=== PATIENT | male | born 1940 | race Caucasian/White ===

== ENCOUNTER 2018-08-06 07:55 | Day surgery (SDC) | payer MEDICARE ==
[~2018-08-06 07:55] MED LIST: PROPOFOL INJ 200 MG/20 ML VIAL IV ONE
[2018-08-06 09:48] VITALS: BP 140/72
--- NOTE | 2018-08-06 12:08 | Operative Report ---
Operative Report DATE OF SURGERY: 08/06/18 Operative Report: The risks, benefits and alternatives of the procedure including the risks of bleeding, perforation requiring surgery are explained to the patient in detail and informed consent is obtained. The patient is brought back to the endoscopy suite and placed in a left, lateral decubital position. Timeout was called. Propofol medication is administered. A rectal examination is done which did not reveal any masses, tears or fissures. An Olympus videoscope was inserted into the patient's rectum. The scope was then carefully advanced all the way to the cecum. The cecum was identified by the usual anatomical landmarks including the ileocecal valve as well as the appendiceal office. Photodocumentation is obtained. The scope was then sequentially pulled back via the rest segments of the colon including the ascending colon, hepatic flexure, transverse colon, splenic flexure, descending colon and finally into the rectosigmoid portions of the colon. Retroflexion maneuver is performed. PREOPERATIVE DIAGNOSIS: Personal history of polyp POSTOPERATIVE DIAGNOSIS: Descending colon polyp status post biopsy. Diverticulosis. Internal hemorrhoids OPERATION: Colonoscopy with biopsy SURGEON: SLIME EARLY ANESTHESIA: LMAC TISSUE REMOVED OR ALTERED: As noted above. COMPLICATIONS: None. ESTIMATED BLOOD LOSS: None. INTRAOPERATIVE FINDINGS: As noted above. PROCEDURE: Patient tolerated the procedure well. No immediate postprocedure complications are noted. Patient discharged in good condition. Discharge date 08/06/2018. Discharge diet: Regular. Discharge activity: Regular. 2-3-week follow-up to discuss findings. Patient is instructed call the office or proceed to the emergency room should there be any further problems or questions. We will wait on the pathology. 3-5-year surveillance colonoscopy.
== END 2018-08-06 09:30 | disposition home or self-care (01) ==
LOC: END 07:55
PROVIDERS: ATTEND Internal Medicine Gastroenterology
DX: D12.4 Benign neoplasm of descending colon (principal); K57.30 Diverticulosis of large intestine without perforation or abscess without bleeding; K64.8 Other hemorrhoids; Z85.038 Personal history of other malignant neoplasm of large intestine; Z90.49 Acquired absence of other specified parts of digestive tract; E78.00 Pure hypercholesterolemia, unspecified; I11.0 Hypertensive heart disease with heart failure; I50.9 Heart failure, unspecified; N40.1 Benign prostatic hyperplasia with lower urinary tract symptoms; C61 Malignant neoplasm of prostate; R39.12 Poor urinary stream; M02.30 Reiter's disease, unspecified site; Z87.891 Personal history of nicotine dependence; Z79.899 Other long term (current) drug therapy
CPT/HCPCS: 45380; 88305 ×2; J2704; 811

== ENCOUNTER 2019-08-19 15:30 | Inpatient (IN) | payer MEDICARE ==
[2019-08-19] MEDS ORDERED: LABETALOL HCL INJ 20 MG/4 ML DISP.SYRIN IV ONE (15:39)
--- NOTE | 2019-08-19 15:49 | ER Document Report ---
ED Blood Pressure Problem - General Chief Complaint: High Blood Pressure Stated Complaint: DIZZINESS Time Seen by Provider: 08/19/19 15:35 Primary Care Provider: BRANDI RIZVI MD [Primary Care Provider] - Follow up as needed Mode of Arrival: Medic Information source: Patient TRAVEL OUTSIDE OF THE [place] IN LAST 30 DAYS: No - HPI Patient complains to provider of: High blood pressure - pt with onset of dizziness earlier today -- EMS called an BP was found to be 236/109 -- pt. without h/o HTN. Clonidine given by EMS. Pt. without CP, N,V, SOB - Related Data Allergies/Adverse Reactions: No Known Allergies Allergy (Verified 08/06/18 08:11) Past Medical History - General Information source: Patient - Social History Smoking Status: Never Smoker Family History: None Patient has suicidal ideation: No Patient has homicidal ideation: No - Past Medical History Cardiac Medical History: Denies: Hx Coronary Artery Disease, Hx Heart Attack, Hx Hypertension Pulmonary Medical History: Denies: Hx Asthma, Hx Bronchitis, Hx COPD, Hx Pneumonia Neurological Medical History: Denies: Hx Cerebrovascular Accident, Hx Seizures Musculoskeletal Medical History: Reports Hx Arthritis - Hx of in the '70s, none since then - Immunizations Hx Diphtheria, Pertussis, Tetanus Vaccination: No Review of Systems - Review of Systems Constitutional: No symptoms reported EENT: No symptoms reported Cardiovascular: See HPI, Dizziness Gastrointestinal: No symptoms reported Musculoskeletal: No symptoms reported Neurological/Psychological: No symptoms reported -: Yes All other systems reviewed and negative Physical Exam - Vital signs Vitals: Resp Pulse Ox 8 L 98 08/19/19 15:38 08/19/19 15:38 - General General appearance: Appears well In distress: None - HEENT Mucous membranes: Normal Pharynx: Normal Neck: Normal - Respiratory Respiratory status: No respiratory distress Breath sounds: Normal - Cardiovascular Rhythm: Regular Heart sounds: Normal auscultation Murmur: No - Abdominal Inspection: Normal Bowel sounds: Normal Tenderness: Nontender - Extremities General upper extremity: Normal inspection General lower extremity: Normal inspection - Neurological Neuro grossly intact: Yes Cognition: Normal Orientation: AAOx4 Speech: Normal Course - Re-evaluation Re-evalutation: 08/19/19 18:15 pt' s BP still elevated after meds -- will start cardene drip and call hospitalist for admission - Vital Signs Vital signs: Temp Pulse Resp BP Pulse Ox 97.9 F 16 172/93 H 96 08/19/19 15:43 08/19/19 17:00 08/19/19 17:00 08/19/19 17:00 - Laboratory Result Diagrams: 08/19/19 16:00 08/19/19 16:00 Laboratory results interpreted by me: 08/19/19 08/19/19 16:00 16:00 Hgb 17.1 H Lymph % (Auto) 12.7 L Seg Neutrophils % 81.1 H Glucose 125 H Creatine Kinase 33 L - Diagnostic Test Radiology reviewed: Reports reviewed - ct neg - EKG Interpretation by Me EKG shows normal: Sinus rhythm Rate: Normal Rhythm: NSR - nsr without acute change - Consults mariano young Time consulted: 18:16 Consulted provider: will come to ER Critical Care Note - Critical Care Note Total time excluding time spent on procedures (mins): 30 Discharge - Discharge Clinical Impression: Accelerated hypertension Condition: Stable Disposition: ADMITTED OBSERVATION Admitting Provider: Lenora (Hospitalist) Unit Admitted: Telemetry Referrals: BRANDI RIZVI MD [Primary Care Provider] - Follow up as needed
[2019-08-19 16:15] LABS: ABSOLUTE BASOPHILS # (AUTO) 0.1 10^3/uL (0.0-0.2); ABSOLUTE LYMPHOCYTES (AUTO) 1.2 10^3/uL (0.5-4.7); ABSOLUTE MONOCYTES (AUTO) 0.5 10^3/uL (0.1-1.4); ABSOLUTE NEUT (AUTO) 7.6 10^3/uL (1.7-8.2); BASOPHILS % (AUTO) 0.7 % (0-2); EOSINOPHILS % (AUTO) 0.2 % (0-6); HEMATOCRIT 50.4 % (37.9-51.0); HEMOGLOBIN 17.1 g/dL (13.5-17.0); LYMPHOCYTES % (AUTO) 12.7 % (13-45); MEAN CORPUSCULAR HGB CONC 33.9 g/dL (32.0-36.0); MEAN CORPUSCULAR VOLUME 92 fl (80-97); MONOCYTES % (AUTO) 5.3 % (3-13); PLATELET COUNT 297 10^3/uL (150-450); RED CELL DISTRIBUTION WIDTH 13.1 % (11.5-14.0); SEGMENTED NEUTROPHILS % (AUTO) 81.1 % (42-78); TOTAL CELLS COUNTED % (AUTO) 100 %; WHITE BLOOD COUNT 9.3 10^3/uL (4.0-10.5)
[2019-08-19] MEDS ORDERED: CLONIDINE HCL 0.2 MG TABLET PO ONE ×2 (16:15→16:45)
[2019-08-19 16:41] LABS: ALBUMIN 3.8 g/dL (3.5-5.0); ALKALINE PHOSPHATASE 104 U/L (38-126); ANION GAP 10 (5-19); ASPARTATE AMINO TRANSFERASE 21 U/L (17-59); BILIRUBIN,DIRECT 0.2 mg/dL (0.0-0.4); BILIRUBIN,TOTAL 0.6 mg/dL (0.2-1.3); BLOOD UREA NITROGEN 14 mg/dL (7-20); CALCIUM 8.9 mg/dL (8.4-10.2); CARBON DIOXIDE 25 mmol/L (22-30); CHLORIDE 105 mmol/L (98-107); CREATINE KINASE 33 U/L (55-170); GLUCOSE 125 mg/dL (75-110); POTASSIUM 4.5 mmol/L (3.6-5.0)
[2019-08-19] MEDS ORDERED: HYDRALAZINE HCL INJ/PF 20 MG/1 ML SDV IV ONE (16:47)
--- NOTE | 2019-08-19 16:52 | RADIOLOGY REPORT (SQ) ---
EXAM DESCRIPTION: CT HEAD WITHOUT COMPLETED DATE/TIME: 08/19/2019 4:40 pm REASON FOR STUDY: dizziness, CARRENO COMPARISON: None. TECHNIQUE: Axial images acquired through the brain without intravenous contrast. Images reviewed wi th bone, brain and subdural windows. Additional sagittal and coronal reconstructions were generated. Images stored on PACS. All CT scanners at this facility use dose modulation, iterative reconstruction, and/or weight based d osing when appropriate to reduce radiation dose to as low as reasonably achievable (ALARA). [facility]: Dose Right [facility]: CareDose [facility]: Dose Right [facility]: Teradose 4D [facility]: Smart WhiteFence RADIATION DOSE: CT Rad equipment meets quality standard of care and radiation dose reduction techniq ues were employed. CTDIvol: 53.2 mGy. DLP: 991 mGy-cm. mGy. LIMITATIONS: None. FINDINGS: VENTRICLES: Normal size and contour. CEREBRUM: Mild cortical atrophy. No masses. No hemorrhage. No midline shift. No evidence for acut e infarction. Normal fuller/white matter differentiation. No areas of low density in the white matter. CEREBELLUM: No masses. No hemorrhage. No alteration of density. No evidence for acute infarction. EXTRAAXIAL SPACES: No fluid collections. No masses. ORBITS AND GLOBE: No intra- or extraconal masses. Normal contour of globe without masses. CALVARIUM: No fracture. PARANASAL SINUSES: No fluid or mucosal thickening. SOFT TISSUES: No mass or hematoma. OTHER: No other significant finding. IMPRESSION: Mild involutional changes no acute intracranial imaging findings. EVIDENCE OF ACUTE STROKE: NO. COMMENT: Quality ID # [id number]: Final reports with documentation of one or more dose reduction techniques (e.g., Automated exposure control, adjustment of the mA and/or kV according to patient size, use of iterative reconstruction technique) TECHNICAL DOCUMENTATION: JOB ID: [id number] [employer]- All Rights Reserved Reading location - IP/workstation name: [email or web address]
[2019-08-19 16:54] LABS: TROPONIN I < 0.012 ng/mL
--- NOTE | 2019-08-19 16:55 | EKG REPORT ---
SEVERITY:- BORDERLINE ECG - SINUS RHYTHM BORDERLINE PROLONGED QT INTERVAL : Confirmed by: Jaki Herrera MD 19-Aug-2019 16:54:16
[2019-08-19] MEDS ORDERED: NICARDIPINE HCL RTU, ISO-OS 20 MG/200 ML RTUINJ IV PRN ×2 (18:13→18:37)
[2019-08-19] MEDS ORDERED: OXYCODONE-ACETAMINOPHEN 5-325 MG TABLET PO PRN (18:39)
[2019-08-19] MEDS ORDERED: TEMAZEPAM 7.5 MG CAPSULE PO PRN (18:39)
[2019-08-19] MEDS ORDERED: MAG HYDROX/AL HYDROX/SIMETH SUSP 30 ML UDCUP PO PRN (18:39)
[2019-08-19] MEDS ORDERED: IPRATROPIUM/ALBUTEROL 0.5-2.5 MG/3 ML AMPUL NEB PRN (18:39)
[2019-08-19] MEDS ORDERED: ONDANSETRON HCL INJ/PF 4 MG/2 ML SDV IV PRN (18:39)
[2019-08-19] MEDS ORDERED: PROMETHAZINE HCL INJ 25 MG/1 ML VIAL IV PRN (18:39)
[2019-08-19] MEDS ORDERED: ACETAMINOPHEN 325 MG TABLET PO PRN (18:39)
[2019-08-19] MEDS ORDERED: LORAZEPAM INJ 2 MG/1 ML VIAL IV PRN (18:44)
--- NOTE | 2019-08-19 18:55 | PDOC H&P ---
History of Present Illness Admission Date/PCP: BRANDI RIZVI MD History of Present Illness: GOVIND LAUREANO JR is a 79 year old male past medical history of prostate cancer and colon cancer, EtOH abuse, brought to ED by EMS after complaining of dizziness, had his blood pressure checked at home which was running in high 200s, when EMS arrived his BP was still in high 100, was given clonidine and brought to ED, in ED he received 2 dose of clonidine however his pressure still stayed elevated. CT head was negative, troponins were negative, EKG no changes. Patient denies any fever, chills, chest pain, shortness of breath, palpitation, headache, focal neurological deficits, weakness. Hospital was consulted for admission. Past Medical History Cardiac Medical History: Denies: Coronary Artery Disease, Myocardial Infarction, Hypertension Pulmonary Medical History: Denies: Asthma, Bronchitis, Chronic Obstructive Pulmonary Disease (COPD), Pneumonia Neurological Medical History: Denies: Seizures Musculoskeltal Medical History: Reports: Arthritis - Hx of in the '70s, none since then Hematology: Denies: Anemia Social History Smoking Status: Never Smoker Family History Family History: None Parental Family History Reviewed: Yes Children Family History Reviewed: Yes Sibling(s) Family History Reviewed.: Yes Medication/Allergy Allergies/Adverse Reactions: No Known Allergies Allergy (Verified 08/06/18 08:11) Review of Systems Review of Systems: as per hpi Physical Exam Vital Signs: Temp Pulse Resp BP Pulse Ox 97.9 F 16 172/93 H 96 08/19/19 15:43 08/19/19 17:00 08/19/19 17:00 08/19/19 17:00 Intake & Output 08/18/19 08/19/19 08/20/19 06:59 06:59 06:59 Weight 99.3 kg General appearance: PRESENT: no acute distress, obese, well-developed, well-nourished Head exam: PRESENT: atraumatic, normocephalic Eye exam: PRESENT: conjunctiva pink, EOMI, PERRLA. ABSENT: scleral icterus Ear exam: PRESENT: normal external ear exam Mouth exam: PRESENT: moist, tongue midline Neck exam: ABSENT: carotid bruit, JVD, lymphadenopathy, thyromegaly Respiratory exam: PRESENT: clear to auscultation ruth. ABSENT: rales, rhonchi, wheezes Cardiovascular exam: PRESENT: RRR. ABSENT: diastolic murmur, rubs, systolic murmur Pulses: PRESENT: normal dorsalis pedis pul Vascular exam: PRESENT: normal capillary refill GI/Abdominal exam: PRESENT: normal bowel sounds, soft. ABSENT: distended, guarding, mass, organolmegaly, rebound, tenderness Rectal exam: PRESENT: deferred Extremities exam: PRESENT: full ROM. ABSENT: calf tenderness, clubbing, pedal edema Neurological exam: PRESENT: alert, awake, oriented to person, oriented to place, oriented to time, oriented to situation, CN II-XII grossly intact. ABSENT: motor sensory deficit Psychiatric exam: PRESENT: appropriate affect, normal mood. ABSENT: homicidal ideation, suicidal ideation Skin exam: PRESENT: dry, intact, warm. ABSENT: cyanosis, rash Results Laboratory Results: 08/19/19 16:00 08/19/19 16:00 08/19/19 08/19/19 16:00 16:00 WBC 9.3 RBC 5.50 Hgb 17.1 H Hct 50.4 MCV 92 MCH 31.0 MCHC 33.9 RDW 13.1 Plt Count 297 Seg Neutrophils % 81.1 H Sodium 139.7 Potassium 4.5 Chloride 105 Carbon Dioxide 25 Anion Gap 10 BUN 14 Creatinine 0.92 Est GFR ( Amer) > 60 Glucose 125 H Calcium 8.9 Total Bilirubin 0.6 AST 21 Alkaline Phosphatase 104 Total Protein 7.0 Albumin 3.8 08/19/19 08/19/19 16:00 16:00 Creatine Kinase 33 L CK-MB (CK-2) 0.40 Troponin I < 0.012 Impressions: Head CT 08/19/19 15:39 IMPRESSION: Mild involutional changes no acute intracranial imaging findings. EVIDENCE OF ACUTE STROKE: NO. Assessment and Plan - Diagnosis (1) Hypertensive emergency Is this a current diagnosis for this admission?: Yes Plan: CT head negative. Troponins negative. EKG no changes Kidney function WNL. Admit to IMCU. Started on Cardizem drip. Decrease MAP by 25% in 2 hours or as tolerated. Goal of normal BP and 24 to 48 hours. Optimize BP slowly as tolerated. We will order renal ultrasound to rule out renal arterial stenosis. Will order TSH. CMP tomorrow. (2) ETOH abuse Is this a current diagnosis for this admission?: Yes Plan: Not in acute withdrawal. Continue p.o. thiamine and folic acid. IV benzos for withdrawal and seizures. Monitor for seizures and fall. (3) History of prostate cancer Is this a current diagnosis for this admission?: Yes Plan: Status post surgery. Takes finasteride at home. Outpatient oncology follow-up. (4) History of colon cancer Is this a current diagnosis for this admission?: Yes Plan: Status post surgery. Last colonoscopy normal. Outpatient GI follow-up.
[2019-08-19 19:17] LABS: FREE T3 3.88 pg/mL (2.77-5.27); FREE T4 (FREE THYROXINE) 1.02 ng/dL (0.78-2.19)
--- NOTE | 2019-08-19 19:22 | Progress Note ---
Provider Note Provider Note: Addendum. Patient is on nicardipine drip not on Cardizem drip. Apparently patient cannot be sent to IMCU because they cannot manage nicardipine drip. I have talked to precipitator operator and he is willing to accept the patient in ICU.
[2019-08-19 19:30] LABS: THYROID STIMULATING HORMONE 0.57 uIU/mL (0.47-4.68)
[2019-08-19] MEDS ORDERED: NORMAL SALINE 500 ML IV ONE (21:43)
[2019-08-19] MEDS: PANTOPRAZOLE SODIUM 40 MG TABLET.DR PO SCH (21:50)
[2019-08-19] MEDS: FOLIC ACID 1 MG TABLET PO SCH (21:50)
[2019-08-19] MEDS: THIAMINE HCL 100 MG TABLET PO SCH (21:51)
[2019-08-20] MEDS: HEPARIN SOD (PORCINE) 5,000 UNIT/ML 1 ML VIAL SUBCUT SCH ×4 (00:04→22:50)
[2019-08-20] MEDS: ASPIRIN 81 MG TABLET, CHEWABLE PO SCH ×2 (00:04→23:15)
[2019-08-20] MEDS ORDERED: GLUCAGON,HUMAN RECOMB 1 MG INJ SUBCUT PRN (03:08)
[2019-08-20] MEDS ORDERED: DEXTROSE 50%-WATER 25 GM/50 ML DISP.SYRIN IV PRN ×2 (03:08)
[2019-08-20] MEDS ORDERED: DEXTROSE 40% GEL 15 GM TUBE PO PRN ×2 (03:08)
[2019-08-20 04:08] LABS: APPEARANCE,URINE CLEAR; BILIRUBIN,URINE NEGATIVE (NEGATIVE); COLOR,URINE YELLOW; GLUCOSE, URINE NEGATIVE (NEGATIVE); KETONES,URINE TRACE mg/dL (NEGATIVE); LEUKOCYTE ESTERASE,URINE NEGATIVE (NEGATIVE); NITRITE,URINE NEGATIVE (NEGATIVE); PROTEIN,URINE NEGATIVE (NEGATIVE); URINE SPECIFIC GRAVITY 1.011; UROBILINOGEN,URINE NEGATIVE mg/dL (<2.0)
[2019-08-20] MEDS: PANTOPRAZOLE SODIUM 40 MG TABLET.DR PO SCH ×2 (06:02→17:20)
[2019-08-20] MEDS: DOCUSATE SODIUM 100 MG CAPSULE PO SCH ×2 (09:36→17:21)
[2019-08-20] MEDS: FINASTERIDE 5 MG TABLET PO SCH (09:36)
[2019-08-20 10:33] LABS: ABSOLUTE EOSINOPHILS # (AUTO) 0.1 10^3/uL (0.0-0.6); ABSOLUTE LYMPHOCYTES (AUTO) 1.5 10^3/uL (0.5-4.7); ABSOLUTE MONOCYTES (AUTO) 0.7 10^3/uL (0.1-1.4); ABSOLUTE NEUT (AUTO) 8.7 10^3/uL (1.7-8.2); BASOPHILS % (AUTO) 0.3 % (0-2); EOSINOPHILS % (AUTO) 0.6 % (0-6); HEMATOCRIT 45.8 % (37.9-51.0); HEMOGLOBIN 15.4 g/dL (13.5-17.0); LYMPHOCYTES % (AUTO) 13.6 % (13-45); MEAN CORPUSCULAR HEMOGLOBIN 30.9 pg (27.0-33.4); MEAN CORPUSCULAR HGB CONC 33.6 g/dL (32.0-36.0); MEAN CORPUSCULAR VOLUME 92 fl (80-97); MONOCYTES % (AUTO) 6.2 % (3-13); PLATELET COUNT 255 10^3/uL (150-450); RED BLOOD COUNT 4.98 10^6/uL (4.35-5.55); SEGMENTED NEUTROPHILS % (AUTO) 79.3 % (42-78); TOTAL CELLS COUNTED % (AUTO) 100 %
[2019-08-20 10:39] LABS: PROTHROMBIN TIME 13.2 SEC (11.4-15.4)
[2019-08-20 10:55] LABS: ALBUMIN 3.4 g/dL (3.5-5.0); ALKALINE PHOSPHATASE 89 U/L (38-126); ANION GAP 8 (5-19); ASPARTATE AMINO TRANSFERASE 16 U/L (17-59); BILIRUBIN,DIRECT 0.1 mg/dL (0.0-0.4); BILIRUBIN,TOTAL 0.8 mg/dL (0.2-1.3); BLOOD UREA NITROGEN 14 mg/dL (7-20); CALCIUM 8.8 mg/dL (8.4-10.2); CARBON DIOXIDE 26 mmol/L (22-30); CHLORIDE 102 mmol/L (98-107); GLUCOSE 117 mg/dL (75-110); POTASSIUM 4.3 mmol/L (3.6-5.0); TOTAL PROTEIN 6.2 g/dL (6.3-8.2)
--- NOTE | 2019-08-20 12:40 | RADIOLOGY REPORT (SQ) ---
EXAM DESCRIPTION: U/S [facility] DUPLEX ART/CATHY FLOW COMPLETED DATE/TIME: 08/20/2019 6:49 am REASON FOR STUDY: Hypertensive urgency. R/o renal artery stenosis COMPARISON: None. TECHNIQUE: Realtime and static grayscale images acquired. Selected color Doppler, velocities and spe ctral images recorded. LIMITATIONS: Bowel gas and body habitus. FINDINGS: RIGHT KIDNEY: RENAL ARTERY VELOCITIES: 56.5 cm/sec. Segmental artery velocity 41.4 cm/sec. RENAL VEIN: Color doppler flow present, patent. VELOCITY RATIO: 1.03. Normal waveforms. KIDNEY: Normal size. There is a prominent column of Jonnathan versus a right renal nodule that measur es 38 x 37 x 29 mm. LEFT KIDNEY: RENAL ARTERY VELOCITIES: 57 cm/sec. Segmental artery velocity 45.3 cm/sec. RENAL VEIN: Color doppler flow present, patent. VELOCITY RATIO: 1.04. Normal waveforms. KIDNEY: Normal size. No significant pathology. BLADDER: Normal. OTHER: No other significant finding. IMPRESSION: No significant renal artery stenosis is seen. There is a questionable right renal mass versus prominent column of Jonnathan. Consider CT without with contrast. COMMENT: NORMAL RENAL ARTERY/AORTA VELOCITY RATIO IS LESS THAN OR EQUAL TO 3.5. TECHNICAL DOCUMENTATION: JOB ID: [id number] [employer]- All Rights Reserved Reading location - IP/workstation name: [email or web address]
--- NOTE | 2019-08-20 16:22 | RADIOLOGY REPORT (SQ) ---
EXAM DESCRIPTION: CT ABDOMEN COMBO COMPLETED DATE/TIME: 08/20/2019 3:37 pm REASON FOR STUDY: ? renal mass; hypertensive emergency COMPARISON: None. TECHNIQUE: CT scan of the abdomen performed with and without intravenous contrast, and without oral contrast. Contrasted imaging performed using helical scanning technique with dynamic intravenous cont rast injection. Images reviewed with lung, soft tissue, and bone windows. Reconstructed coronal and s agittal MPR images reviewed. Delayed images for evaluation of the urinary system also acquired and ev aluated. All images stored on PACS. All CT scanners at this facility use dose modulation, iterative reconstruction, and/or weight based d osing when appropriate to reduce radiation dose to as low as reasonably achievable (ALARA). [facility]: Dose Right [facility]: CareDose [facility]: Dose Right [facility]: Teradose 4D [facility]: [employer] CONTRAST TYPE AND DOSE: 100 mL Omnipaque 350- low osmolar. RENAL FUNCTION: BUN 14 creatinine 1.04 RADIATION DOSE: . LIMITATIONS: None. FINDINGS: NONCONTRASTED IMAGING: There are some tiny intrarenal calculi that are likely vascular. POSTCONTRASTED IMAGING: LOWER CHEST: The left hemidiaphragm is elevated. No infiltrate, effusion, or mass. LIVER: Normal size. No masses. No dilated ducts. SPLEEN: Normal size. No focal lesions. PANCREAS: No masses. No significant calcifications. No adjacent inflammation or peripancreatic fluid collections. Pancreatic duct not dilated. GALLBLADDER: There are some apparent cholesterol stones in the gallbladder. Cannot exclude some sept ations in the gallbladder. Consider ultrasound for further evaluation. ADRENAL GLANDS: No significant masses or asymmetry. RIGHT KIDNEY AND URETER: No solid masses. No significant calcifications. No hydronephrosis or hyd roureter. LEFT KIDNEY AND URETER: No solid masses. No significant calcifications. No hydronephrosis or hydr oureter. AORTA AND VESSELS: No aneurysm. No dissection. Renal arteries, SMA, celiac without stenosis. RETROPERITONEUM: No retroperitoneal adenopathy, hemorrhage or masses. BOWEL AND PERITONEAL CAVITY: Extensive diverticulosis. No associated inflammation. APPENDIX: Normal. ABDOMINAL WALL: No masses. No hernias. BONES: There are some mixed lytic/ sclerotic changes in the L2 vertebra. OTHER: No other significant finding. IMPRESSION: 1. No renal mass. No ureteral stone or obstruction. 2. No adrenal mass. 3. There are some cholesterol stones. Cannot exclude septations in the gallbladder. Recommend ultr asound. 4. Diverticulosis coli. 5. There is a mixed lytic/ sclerotic changes in the L2 vertebra slightly concerning for metastatic d isease. Is there history of known neoplasm? TECHNICAL DOCUMENTATION: JOB ID: [id number] Quality ID # [id number]: Final reports with documentation of one or more dose reduction techniques (e.g., Au tomated exposure control, adjustment of the mA and/or kV according to patient size, use of iterative reconstruction technique) 2010 [employer]- All Rights Reserved Reading location - IP/workstation name: [email or web address]
[2019-08-20] MEDS: THIAMINE HCL 100 MG TABLET PO SCH (17:20)
[2019-08-20] MEDS: FOLIC ACID 1 MG TABLET PO SCH (17:20)
--- NOTE | 2019-08-20 18:17 | PDOC PROGRESS REPORT ---
Subjective Progress Note for:: 08/20/19 Subjective:: The patient is a 79-year-old male with a past medical history of remote prostate and colon cancer, and EtOH abuse who was admitted 08/19/2019 for hypertensive emergency. Briefly required Cardene drip while in the emergency department; it has been weaned off and not required any further antihypertensive medications. The patient was seen on afternoon rounds. He was found resting in bed comfortably on room air. He states that he is feeling well and has no new que stions or concerns today. He specifically denies fever, chills, headache, dizziness, blurred vision, focal deficits, chest pain, palpitations, abdominal pain, nausea vomiting and diarrhea. Patient had multiple questions; concerns addressed. No concerns per nursing. Reason For Visit: HYPERTENSIVE EMERGENCY, RENAL MASS Physical Exam Vital Signs: Temp Pulse Resp BP Pulse Ox 97.8 F 64 18 135/68 H 96 08/20/19 15:03 08/20/19 15:03 08/20/19 15:03 08/20/19 15:03 08/20/19 15:03 Intake & Output 08/19/19 08/20/19 08/21/19 06:59 06:59 06:59 Intake Total 609 950 Output Total 500 Balance 609 450 Weight 91.6 kg General appearance: PRESENT: no acute distress, cooperative - Pleasant, well- developed, well-nourished Head exam: PRESENT: atraumatic, normocephalic Eye exam: PRESENT: conjunctiva pink, EOMI, PERRLA. ABSENT: scleral icterus Ear exam: PRESENT: normal external ear exam Mouth exam: PRESENT: moist, tongue midline Neck exam: ABSENT: carotid bruit, JVD, lymphadenopathy, thyromegaly Respiratory exam: PRESENT: clear to auscultation ruth, symmetrical, unlabored. ABSENT: rales, rhonchi, wheezes Cardiovascular exam: PRESENT: RRR, +S1, +S2. ABSENT: diastolic murmur, rubs, systolic murmur Pulses: PRESENT: normal dorsalis pedis pul Vascular exam: PRESENT: normal capillary refill GI/Abdominal exam: PRESENT: normal bowel sounds, soft. ABSENT: distended, guarding, mass, organolmegaly, rebound, tenderness Rectal exam: PRESENT: deferred Extremities exam: PRESENT: full ROM. ABSENT: calf tenderness, clubbing, pedal edema Neurological exam: PRESENT: alert, awake, oriented to person, oriented to place, oriented to time, oriented to situation, CN II-XII grossly intact. ABSENT: motor sensory deficit Psychiatric exam: PRESENT: appropriate affect, normal mood. ABSENT: homicidal ideation, suicidal ideation Skin exam: PRESENT: dry, intact, warm. ABSENT: cyanosis, rash Results Laboratory Results: 08/20/19 10:05 08/20/19 10:05 08/19/19 08/20/19 08/20/19 16:00 03:15 10:05 WBC 11.0 H RBC 4.98 Hgb 15.4 Hct 45.8 MCV 92 MCH 30.9 MCHC 33.6 RDW 13.0 Plt Count 255 Seg Neutrophils % 79.3 H Sodium Potassium Chloride Carbon Dioxide Anion Gap BUN Creatinine Est GFR ( Amer) Glucose Calcium Magnesium Total Bilirubin AST Alkaline Phosphatase Total Protein Albumin TSH 0.57 Free T4 1.02 Free T3 pg/mL 3.88 Urine Color YELLOW Urine Appearance CLEAR Urine pH 6.0 Ur Specific [place] 1.011 Urine Protein NEGATIVE Urine Glucose (UA) NEGATIVE Urine Ketones TRACE H Urine Blood NEGATIVE Urine Nitrite NEGATIVE Ur Leukocyte Esterase NEGATIVE Urine WBC (Auto) 1 Urine RBC (Auto) 1 08/20/19 10:05 WBC RBC Hgb Hct MCV MCH MCHC RDW Plt Count Seg Neutrophils % Sodium 135.7 L Potassium 4.3 Chloride 102 Carbon Dioxide 26 Anion Gap 8 BUN 14 Creatinine 1.04 Est GFR ( Amer) > 60 Glucose 117 H Calcium 8.8 Magnesium 2.0 Total Bilirubin 0.8 AST 16 L Alkaline Phosphatase 89 Total Protein 6.2 L Albumin 3.4 L TSH Free T4 Free T3 pg/mL Urine Color Urine Appearance Urine pH Ur Specific [place] Urine Protein Urine Glucose (UA) Urine Ketones Urine Blood Urine Nitrite Ur Leukocyte Esterase Urine WBC (Auto) Urine RBC (Auto) 08/19/19 08/19/19 16:00 16:00 Creatine Kinase 33 L CK-MB (CK-2) 0.40 Troponin I < 0.012 Impressions: Head CT 08/19/19 15:39 IMPRESSION: Mild involutional changes no acute intracranial imaging findings. EVIDENCE OF ACUTE STROKE: NO. Vascular Ultrasound 08/20/19 00:00 IMPRESSION: No significant renal artery stenosis is seen. There is a questionable right renal mass versus prominent column of Jonnathan. Consider CT without with contrast. Abdomen CT 08/20/19 13:36 IMPRESSION: 1. No renal mass. No ureteral stone or obstruction. 2. No adrenal mass. 3. There are some cholesterol stones. Cannot exclude septations in the gallbladder. Recommend ultrasound. 4. Diverticulosis coli. 5. There is a mixed lytic/ sclerotic changes in the L2 vertebra slightly concerning for metastatic disease. Is there history of known neoplasm? Assessment and Plan - Diagnosis (1) Hypertensive emergency Is this a current diagnosis for this admission?: Yes Plan: CT head negative. Troponins negative. EKG no changes Kidney function WNL. Renal duplex ultrasound showed questionable right renal mass with recommendations for CT follow-up. Abdomen CT with contrast (renal protocol) demonstrated normal kidneys and adrenal glands. Incidental finding of gallbladder disease, diverticulosis, and lytic lesions to L2 were noted. Thyroid panel normal. PTH, renal/aldosterone panel pending. These are send out labs and will not be available for several days. Admit to [facility]. Cardene drip discontinued last night; he has not required any further interventions for blood pressure control. PCP follow-up. Cardiac diet. (2) ETOH abuse Is this a current diagnosis for this admission?: Yes Plan: Not in acute withdrawal. Continue p.o. thiamine and folic acid. IV benzos for withdrawal and seizures. Monitor for seizures and fall. (3) History of colon cancer Is this a current diagnosis for this admission?: Yes Plan: Status post surgery. Last colonoscopy 3 years ago normal. Outpatient GI follow-up. (4) History of prostate cancer Is this a current diagnosis for this admission?: Yes Plan: Status post surgery. Continue home dose finasteride. Outpatient oncology follow-up. - Plan Summary Summary: POC discussed w/ Dr. Siddiqi; appreciate his assistance. - Time Time Spent with patient: 15-24 minutes Medications reviewed and adjusted accordingly: Yes Anticipated discharge: Home Within: within 24 hours
[2019-08-21 05:03] LABS: ABSOLUTE BASOPHILS # (AUTO) 0.1 10^3/uL (0.0-0.2); ABSOLUTE EOSINOPHILS # (AUTO) 0.1 10^3/uL (0.0-0.6); ABSOLUTE LYMPHOCYTES (AUTO) 1.5 10^3/uL (0.5-4.7); ABSOLUTE MONOCYTES (AUTO) 0.8 10^3/uL (0.1-1.4); BASOPHILS % (AUTO) 0.8 % (0-2); EOSINOPHILS % (AUTO) 1.1 % (0-6); HEMATOCRIT 46.3 % (37.9-51.0); HEMOGLOBIN 15.7 g/dL (13.5-17.0); LYMPHOCYTES % (AUTO) 17.4 % (13-45); MEAN CORPUSCULAR HEMOGLOBIN 31.3 pg (27.0-33.4); MEAN CORPUSCULAR HGB CONC 33.9 g/dL (32.0-36.0); MEAN CORPUSCULAR VOLUME 92 fl (80-97); MONOCYTES % (AUTO) 10.1 % (3-13); PLATELET COUNT 248 10^3/uL (150-450); RED BLOOD COUNT 5.01 10^6/uL (4.35-5.55); SEGMENTED NEUTROPHILS % (AUTO) 70.6 % (42-78); TOTAL CELLS COUNTED % (AUTO) 100 %; WHITE BLOOD COUNT 8.4 10^3/uL (4.0-10.5)
[2019-08-21 05:30] LABS: ALBUMIN 3.3 g/dL (3.5-5.0); ALKALINE PHOSPHATASE 93 U/L (38-126); ANION GAP 6 (5-19); ASPARTATE AMINO TRANSFERASE 16 U/L (17-59); BILIRUBIN,DIRECT 0.1 mg/dL (0.0-0.4); BILIRUBIN,TOTAL 0.8 mg/dL (0.2-1.3); BLOOD UREA NITROGEN 12 mg/dL (7-20); CALCIUM 8.8 mg/dL (8.4-10.2); CARBON DIOXIDE 29 mmol/L (22-30); CHLORIDE 102 mmol/L (98-107); GLUCOSE 93 mg/dL (75-110); POTASSIUM 4.4 mmol/L (3.6-5.0); TOTAL PROTEIN 6.2 g/dL (6.3-8.2)
[2019-08-21] MEDS: HEPARIN SOD (PORCINE) 5,000 UNIT/ML 1 ML VIAL SUBCUT SCH (07:47)
[2019-08-21] MEDS: FINASTERIDE 5 MG TABLET PO SCH (09:35)
[2019-08-21] MEDS: DOCUSATE SODIUM 100 MG CAPSULE PO SCH (09:36)
[2019-08-21] MEDS: PANTOPRAZOLE SODIUM 40 MG TABLET.DR PO SCH (09:36)
[2019-08-21] MEDS ORDERED: AMLODIPINE BESYLATE 5 MG TABLET PO SCH (10:00)
[2019-08-21 12:56] VITALS: BP 155/86
--- NOTE | 2019-08-23 13:09 | PDOC DISCHARGE SUMMARY ---
Impression - Admit/DC Date/PCP Admission Date/Primary Care Provider: 08/20/19 13:40 BRANDI RIZVI MD Discharge Date: 08/21/19 - Discharge Diagnosis (1) Hypertensive emergency Is this a current diagnosis for this admission?: Yes (2) ETOH abuse Is this a current diagnosis for this admission?: Yes (3) History of colon cancer Is this a current diagnosis for this admission?: Yes (4) History of prostate cancer Is this a current diagnosis for this admission?: Yes - Additional Information Resuscitation Status: Full Code Discharge Diet: Cardiac Discharge Activity: Activity As Tolerated, Balance Activity w/Rest, Slowly Increase Activity Referrals: BRANDI RIZVI MD [Primary Care Provider] - 08/30/19 2:15 pm Prescriptions: Folic Acid [Folvite 1 mg Tablet] 1 mg PO QPM #90 tablet Amlodipine Besylate [Norvasc 5 mg Tablet] 5 mg PO DAILY #30 tablet Pantoprazole Sodium [Protonix [address] Tablet] 40 mg PO DAILY #30 tablet. Thiamine HCl [Thiamine 100 mg Tablet] 100 mg PO QPM #30 tablet Home Medications: Finasteride [Proscar 5 mg Tablet] 5 mg PO DAILY 08/19/19 Aspirin [Aspirin 325 mg Tablet] 325 mg PO AC 08/20/19 Acetaminophen [Tylenol 325 mg Tablet] 325 mg PO Q4HP PRN tablet 08/21/19 Amlodipine Besylate [Norvasc 5 mg Tablet] 5 mg PO DAILY #30 tablet 08/21/19 Aspirin [Aspirin 81 mg Chewable Tablet] 81 mg PO QHS tab.chew 08/21/19 Docusate Sodium [Colace 100 mg Capsule] 100 mg PO BID capsule 08/21/19 Folic Acid [Folvite 1 mg Tablet] 1 mg PO QPM #90 tablet 08/21/19 Pantoprazole Sodium [Protonix [address] Tablet] 40 mg PO DAILY #30 tablet. 08/21/19 Thiamine HCl [Thiamine 100 mg Tablet] 100 mg PO QPM #30 tablet 08/21/19 History of Present Illiness History of Present Illness: Per H&P by Dr. Cooley: GOVIND LAUREANO JR is a 79 year old male past medical history of prostate cancer and colon cancer, EtOH abuse, brought to ED by EMS after complaining of dizziness, had his blood pressure checked at home which was running in high 200s, when EMS arrived his BP was still in high 100, was given clonidine and brought to ED, in ED he received 2 dose of clonidine however his pressure still stayed elevated. CT head was negative, troponins were negative, EKG no changes. Patient denies any fever, chills, chest pain, shortness of breath, palpitation, headache, focal neurological deficits, weakness. Hospital was consulted for admission. Hospital Course Hospital Course: (1) Hypertensive emergency CT head negative. Troponins negative. EKG no changes Kidney function WNL. Renal duplex ultrasound showed questionable right renal mass with recommendations for CT follow-up. Abdomen CT with contrast (renal protocol) demonstrated normal kidneys and adrenal glands. Incidental finding of gallbladder disease, diverticulosis, and lytic lesions to L2 were noted. Thyroid panel normal. PTH, renal/aldosterone panel pending. These are send out labs and will not be available for several days. Patient was admitted to the [facility] on continuous cardiac telemetry. The Cardizem drip was discontinued the evening he was admitted. He was noted to have Additional elevated blood pressures 144/72 - 156/83. Therefore, the patient was started on Amlodipine. PCP follow-up. Cardiac diet. (2) ETOH abuse No withdrawal symptoms noted during admission. Continue p.o. thiamine and folic acid supplementation. Cessation encouraged. (3) History of colon cancer Status post surgery. Last colonoscopy 3 years ago normal. Outpatient GI follow-up. (4) History of prostate cancer Status post surgery. Continue home dose finasteride. Outpatient oncology follow-up. Physical Exam Vital Signs: Temp Pulse Resp BP Pulse Ox 98.0 F 71 16 155/86 H 94 08/21/19 12:38 08/21/19 12:38 08/21/19 12:38 08/21/19 12:38 08/21/19 12:38 General appearance: PRESENT: no acute distress, cooperative, well-developed, well-nourished - overweight Head exam: PRESENT: atraumatic, normocephalic Eye exam: PRESENT: conjunctiva pink, EOMI, PERRLA. ABSENT: scleral icterus Ear exam: PRESENT: normal external ear exam Mouth exam: PRESENT: moist, tongue midline Neck exam: ABSENT: carotid bruit, JVD, lymphadenopathy, thyromegaly Respiratory exam: PRESENT: clear to auscultation ruth. ABSENT: rales, rhonchi, wheezes Cardiovascular exam: PRESENT: RRR. ABSENT: diastolic murmur, rubs, systolic murmur Pulses: PRESENT: normal dorsalis pedis pul Vascular exam: PRESENT: normal capillary refill GI/Abdominal exam: PRESENT: normal bowel sounds, soft. ABSENT: distended, guarding, mass, organolmegaly, rebound, tenderness Rectal exam: PRESENT: deferred Extremities exam: PRESENT: full ROM. ABSENT: calf tenderness, clubbing, pedal edema Musculoskeletal exam: PRESENT: ambulatory Neurological exam: PRESENT: alert, awake, oriented to person, oriented to place, oriented to time, oriented to situation, CN II-XII grossly intact. ABSENT: motor sensory deficit Psychiatric exam: PRESENT: appropriate affect, normal mood. ABSENT: homicidal ideation, suicidal ideation Skin exam: PRESENT: dry, intact, warm. ABSENT: cyanosis, rash Results Laboratory Results: WBC 8.4 10^3/uL (4.0-10.5) 08/21/19 04:06 RBC 5.01 10^6/uL (4.35-5.55) 08/21/19 04:06 Hgb 15.7 g/dL (13.5-17.0) 08/21/19 04:06 Hct 46.3 % (37.9-51.0) 08/21/19 04:06 MCV 92 fl (80-97) 08/21/19 04:06 MCH 31.3 pg (27.0-33.4) 08/21/19 04:06 MCHC 33.9 g/dL (32.0-36.0) 08/21/19 04:06 RDW 13.0 % (11.5-14.0) 08/21/19 04:06 Plt Count 248 10^3/uL (150-450) 08/21/19 04:06 Lymph % (Auto) 17.4 % (13-45) 08/21/19 04:06 [place] % (Auto) 10.1 % (3-13) 08/21/19 04:06 Eos % (Auto) 1.1 % (0-6) 08/21/19 04:06 Baso % (Auto) 0.8 % (0-2) 08/21/19 04:06 Absolute Neuts (auto) 6.0 10^3/uL (1.7-8.2) 08/21/19 04:06 Absolute Lymphs (auto) 1.5 10^3/uL (0.5-4.7) 08/21/19 04:06 Absolute Monos (auto) 0.8 10^3/uL (0.1-1.4) 08/21/19 04:06 Absolute Eos (auto) 0.1 10^3/uL (0.0-0.6) 08/21/19 04:06 Absolute Basos (auto) 0.1 10^3/uL (0.0-0.2) 08/21/19 04:06 Seg Neutrophils % 70.6 % (42-78) 08/21/19 04:06 PT 13.2 SEC (11.4-15.4) 08/20/19 10:05 INR 1.00 08/20/19 10:05 Sodium 137.1 mmol/L (137-145) 08/21/19 04:06 Potassium 4.4 mmol/L (3.6-5.0) 08/21/19 04:06 Chloride 102 mmol/L (98-107) 08/21/19 04:06 Carbon Dioxide 29 mmol/L (22-30) 08/21/19 04:06 Anion Gap 6 (5-19) 08/21/19 04:06 BUN 12 mg/dL (7-20) 08/21/19 04:06 Creatinine 1.06 mg/dL (0.52-1.25) 08/21/19 04:06 Est GFR ( Amer) > 60 (>60) 08/21/19 04:06 Est GFR (MDRD) Non-Af > 60 (>60) 08/21/19 04:06 Glucose 93 mg/dL (75-110) 08/21/19 04:06 Calcium 8.8 mg/dL (8.4-10.2) 08/21/19 04:06 Magnesium 2.0 mg/dL (1.6-2.3) 08/21/19 04:06 Total Bilirubin 0.8 mg/dL (0.2-1.3) 08/21/19 04:06 Direct Bilirubin 0.1 mg/dL (0.0-0.4) 08/21/19 04:06 Neonat Total Bilirubin Not Reportable 08/21/19 04:06 Neonat Direct Bilirubin Not Reportable 08/21/19 04:06 Neonat Indirect Bili Not Reportable 08/21/19 04:06 AST 16 U/L (17-59) L 08/21/19 04:06 ALT 18 U/L (<50) 08/21/19 04:06 Alkaline Phosphatase 93 U/L (38-126) 08/21/19 04:06 Creatine Kinase 33 U/L (55-170) L 08/19/19 16:00 CK-MB (CK-2) 0.40 ng/mL (<4.55) 08/19/19 16:00 Troponin I < 0.012 ng/mL 08/19/19 16:00 Total Protein 6.2 g/dL (6.3-8.2) L 08/21/19 04:06 Albumin 3.3 g/dL (3.5-5.0) L 08/21/19 04:06 TSH 0.57 uIU/mL (0.47-4.68) 08/19/19 16:00 Free T4 1.02 ng/dL (0.78-2.19) 08/19/19 16:00 Free T3 pg/mL 3.88 pg/mL (2.77-5.27) 08/19/19 16:00 Urine Color YELLOW 08/20/19 03:15 Urine Appearance CLEAR 08/20/19 03:15 Urine pH 6.0 (5.0-9.0) 08/20/19 03:15 Ur Specific [place] 1.011 08/20/19 03:15 Urine Protein NEGATIVE mg/dL (NEGATIVE) 08/20/19 03:15 Urine Glucose (UA) NEGATIVE mg/dL (NEGATIVE) 08/20/19 03:15 Urine Ketones TRACE mg/dL (NEGATIVE) H 08/20/19 03:15 Urine Blood NEGATIVE (NEGATIVE) 08/20/19 03:15 Urine Nitrite NEGATIVE (NEGATIVE) 08/20/19 03:15 Urine Bilirubin NEGATIVE (NEGATIVE) 08/20/19 03:15 Urine Urobilinogen NEGATIVE mg/dL (<2.0) 08/20/19 03:15 Ur Leukocyte Esterase NEGATIVE (NEGATIVE) 08/20/19 03:15 Urine WBC (Auto) 1 /HPF 08/20/19 03:15 Urine RBC (Auto) 1 /HPF 08/20/19 03:15 U Hyaline Cast (Auto) 3 /LPF 08/20/19 03:15 Urine Mucus (Auto) RARE /LPF 08/20/19 03:15 Urine Ascorbic Acid NEGATIVE (NEGATIVE) 08/20/19 03:15 08/19/19 16:00 CK-MB (CK-2) 0.40 Troponin I < 0.012 Impressions: Head CT 08/19/19 15:39 IMPRESSION: Mild involutional changes no acute intracranial imaging findings. EVIDENCE OF ACUTE STROKE: NO. Vascular Ultrasound 08/20/19 00:00 IMPRESSION: No significant renal artery stenosis is seen. There is a questionable right renal mass versus prominent column of Jonnathan. Consider CT without with contrast. Abdomen CT 08/20/19 13:36 IMPRESSION: 1. No renal mass. No ureteral stone or obstruction. 2. No adrenal mass. 3. There are some cholesterol stones. Cannot exclude septations in the gallbladder. Recommend ultrasound. 4. Diverticulosis coli. 5. There is a mixed lytic/ sclerotic changes in the L2 vertebra slightly concerning for metastatic disease. Is there history of known neoplasm? Plan Plan of Treatment: Patient is discharged home with self-care. He is advised to follow-up with his primary care provider within 1 week. At time of discharge, renin activity, aldosterone, and aldosterone/renin ratio labs are pending. These are send out labs and results should not return for several more days. He is instructed to eat a low-sodium diet and to take his medications as prescribed. He is encouraged to check his blood pressure once daily and keep a log for his primary care provider to review. He is instructed to return to the emergency department as needed for concerning symptoms. Stroke Is this a Stroke Patient?: No Acute Heart Failure - Is this a Heart Failure Patient?: No
[2019-08-26 09:36] LABS: ALDOSTERONE RENIN RATIO 2 11.4 (0.0-30.0); RENIN ACTIVITY 0.334 ng/mL/hr (0.167-5.38)
== END 2019-08-21 13:17 | disposition home or self-care (01) | DRG 305 ==
LOC: ER 15:30 → EH 18:50 → 3N 08-20 02:41 → OBSVTOIN 08-20 13:40
PROVIDERS: ADMIT Internal Medicine; ATTEND Internal Medicine
DX: I16.1 Hypertensive emergency (principal); N28.89 Other specified disorders of kidney and ureter; R42 Dizziness and giddiness; F10.10 Alcohol abuse, uncomplicated; Y90.9 Presence of alcohol in blood, level not specified; Z85.038 Personal history of other malignant neoplasm of large intestine; Z85.46 Personal history of malignant neoplasm of prostate; Z90.49 Acquired absence of other specified parts of digestive tract; Z90.79 Acquired absence of other genital organ(s); Z79.82 Long term (current) use of aspirin; Z79.899 Other long term (current) drug therapy
CPT/HCPCS: 36415; 70450; 74170; 80053; 81001; 82088; 82550; 82553; 83735; 84244; 84439; 84443; 84481; 84484; 85025; 85610; 93005; 93010; 93976; 96365; 96366; 96375; 99291; J3490; J7040